=== PATIENT | male | born 1975 | race American Indian/Alaskan Native ===

== ENCOUNTER 2021-02-27 08:48 | Day surgery (SDC) | payer BC ==
[2021-02-27] MEDS ORDERED: LIDOCAINE (1%) 10 MG/1 ML VIAL 20 ML MDV ONE (11:08)
[2021-02-27] MEDS ORDERED: LIDOCAINE (1%) 10 MG/1 ML VIAL 20 ML MDV INFILTRATI ONE (11:30)
--- NOTE | 2021-02-27 12:00 | Short Stay Summary ---
Short Stay Documentation Date of service: 02/27/21 Narrative H&P: complex bilateral thyroid nodules - History Principal diagnosis: thyroid nodules Past Medical History: No medical history - Allergies and Medications Current Medications: Allergies No Known Allergies Allergy (Unverified 02/27/21 09:15) Home Medications Medication Instructions Recorded Confirmed Last Taken Type No Known Home Medications [No 02/27/21 02/27/21 Unknown History Reported Home Medications] - Physical exam General appearance: no acute distress HEENT: Other (enlarged nodular thyroid evident) - Brief post op/procedure progress note Date of procedure: 02/27/21 Pre-op diagnosis: thyroid nodules Post-op diagnosis: same Procedure: US thyroid FNA/rotex biopsy Anesthesia: local Findings: multiple nodules Surgeon: LUIS OSHEA Estimated blood loss: none Pathology: list (FNA/biopsy of dominant right lobe nodule and left lobe nodules) Specimen disposition: to lab Condition: stable - Hospital course Hospital course: uneventful - Disposition Condition at discharge: Good - Discharge Diagnoses (1) Thyroid nodule Status: Chronic Short Stay Discharge Plan Follow up with: XI MUNOZ MD [Primary Care Provider] - 7 Days
[2021-02-27 12:07] VITALS: BP 117/75
--- NOTE | 2021-02-27 13:37 | Ultrasound Report ---
ULTRASOUND BIOPSY THYROID ULTRASOUND BIOPSY THYROID HISTORY: Bilateral thyroid nodules COMPARISON: None at this facility. DESCRIPTION OF PROCEDURE: Informed consent was obtained. A timeout was performed. Sterile technique w as utilized. 1% lidocaine for skin anesthesia. Using ultrasound guidance, 2 fine-needle aspirations and one Rotex biopsy were obtained from a comple x mass in the mid right thyroid lobe measuring 4.4 x 2.4 x 3.1 cm. Using ultrasound guidance, 2 fine-needle aspirations and one Rotex biopsy were obtained from a comple x mass in the mid left thyroid lobe measuring 2.9 x 1.4 x 3.0 cm. Pathology deemed the samples adequate. The patient tolerated the procedure without complication. IMPRESSION: Successful ultrasound-guided biopsy of bilateral thyroid nodules as described. Signer Name: Patricio Reed Jr, MD Signed: 02/27/2021 1:33 PM Workstation Name: [id number]
== END 2021-02-27 12:18 | disposition home or self-care (01) ==
LOC: US 08:48 → CATHLABREC 08:48 → EDSTATUS 09:00 → EDSEX 09:00 → CATHLABREC 12:18
PROVIDERS: ATTEND Internal Medicine
DX: E04.2 Nontoxic multinodular goiter (principal); E78.00 Pure hypercholesterolemia, unspecified; Z79.899 Other long term (current) drug therapy
CPT/HCPCS: 60100; 76942; 88112; 88172; 88173; 88305